=== PATIENT | female | born 1995 | race Caucasian/White ===

== ENCOUNTER 2020-12-10 15:23 | Inpatient (IN) ==
[2020-12-10] MEDS ORDERED: LACTATED RINGER'S 1,000 ML IV PRN ×2 (20:20→20:56)
[2020-12-10] MEDS ORDERED: miSOPROStoL 50 MCG TAB PO ONE (20:56)
[2020-12-10] MEDS ORDERED: OXYTOCIN 30 UNITS/500 ML BAG IV PRN (20:56)
[2020-12-10 20:57] LABS: Hematocrit (blood only) 33.5 % (37-47); Hemoglobin 11.4 g/dL (12.0-16.0); Mean Corpuscular Hemoglobin 31.5 pg (25-34); Mean Corpuscular Volume 92.5 fL (80-100); Mean Platelet Volume 10.7 fL (7.4-10.4); Platelet Count 275 K/uL (130-400); RDW Coefficient of Variation 13.3 % (11.5-14.5); RDW Standard Deviation 44.8 fL (36.4-46.3); Red Blood Count 3.62 M/uL (4.2-5.4); White Blood Count 7.86 K/uL (4.8-10.8)
[2020-12-11] MEDS ORDERED: miSOPROStoL 50 MCG TAB PO PRN (01:12)
[2020-12-11] MEDS ORDERED: miSOPROStoL 50 MCG TAB ONE (01:25)
[2020-12-11] MEDS ORDERED: BUTORPHANOL TARTRATE 1 MG/ML VIAL IV PRN (05:20)
[2020-12-11] MEDS ORDERED: BUTORPHANOL TARTRATE 1 MG/ML VIAL ONE (05:39)
[2020-12-11] MEDS ORDERED: BUPIVACAINE 0.25% 30 ML VIAL ONE (05:52)
[2020-12-11] MEDS ORDERED: fentaNYL citrate 100 MCG/2 ML VIAL ONE (05:52)
[2020-12-11] MEDS ORDERED: ePHEDrine sulfate 50 MG/ML AMP ONE (05:52)
[2020-12-11] MEDS ORDERED: fentaNYL 2MCG/ML ROPIVACAINE 1.25MG/ML 100 ML BAG EPI ONE (05:53)
[2020-12-11] MEDS ORDERED: LIDOCAINE 1% LOCAL 20 ML VIAL ONE ×2 (06:43→06:49)
[2020-12-11] MEDS: OXYTOCIN 30 UNITS/500 ML BAG IV PRN ×2 (06:45→07:57)
[2020-12-11] MEDS ORDERED: METHYLERGONOVINE MALEATE 0.2 MG/ML AMP ONE (06:57)
[2020-12-11] MEDS ORDERED: CARBOPROST TROMETHAMINE 250 MCG/ML AMPUL ONE (07:02)
[2020-12-11] MEDS ORDERED: miSOPROStoL 100 MCG TAB PR ONE (07:22)
[2020-12-11] MEDS ORDERED: BENZOCAINE 20% AER SPR 82.5 GM CAN EXT PRN (07:22)
[2020-12-11] MEDS ORDERED: OXYTOCIN 30 UNITS/500 ML BAG IV PRN (07:22)
[2020-12-11] MEDS ORDERED: METHYLERGONOVINE MALEATE 0.2 MG/ML AMP IM ONE (07:22)
[2020-12-11] MEDS ORDERED: oxyCODONE/ACETAMINOPHEN 5mg/325mg TAB PO PRN (07:22)
[2020-12-11] MEDS ORDERED: DIPHTHERIA/TETANUS/PERTUSSIS 0.5 ML SYR/VIAL IM ONE (07:22)
[2020-12-11] MEDS ORDERED: HYDROCORTISONE ACETATE 25 MG SUPP PR PRN (07:22)
[2020-12-11] MEDS ORDERED: CARBOPROST TROMETHAMINE 250 MCG/ML AMPUL IM ONE (07:22)
[2020-12-11] MEDS ORDERED: bisacodyL 10 MG SUPP PR PRN (07:22)
[2020-12-11] MEDS ORDERED: ACETAMINOPHEN W/CODEINE #3 1 TAB PO PRN (07:22)
[2020-12-11] MEDS ORDERED: SUPERCREAM 0.870% 15 GM JAR EXT PRN (07:22)
[2020-12-11] MEDS ORDERED: miSOPROStoL 100 MCG TAB ONE (07:25)
[2020-12-11] MEDS: IBUPROFEN 600 MG TAB PO PRN ×4 (08:26→23:53)
--- NOTE | 2020-12-11 08:26 | Operative Report (OR) ---
DATE OF OPERATION: 12/11/2020 DELIVERY NOTE She has been followed in our office for care and delivery. She started to develop gestational hypertension. Last several weeks, she was placed at bed rest. The pressures were followed frequently in the office. They continued to get worse and she was basically brought in for induction with diagnosis of early toxemia. Pressures were elevated on admission and she did have some trace protein. Her cervix was ripe. Her cervix was about 3-4 cm, thin, soft, has about a -1 station. She was not jeffery, so she was given p.o. Cytotec 50 mcg. Four hours later, she still was not jeffery, given another dose of 50 mcg. Subsequently, her membranes ruptured. I checked her, she was about 5 cm and then an hour later, she was fully dilated at about a +3 station. At this point, we started to push. In a short period of time under an hour, she pushed out a live male via direct occiput anterior position over an intact perineum. Infant was suctioned through the mouth and the nose. Cord was allowed to pulse for over a minute, then cord was clamped, it was cut by the father. Cord blood was taken. With IV Pitocin running and IM Methergine, the placenta was removed intact. We did have problems with some atony, so eventually we gave her Hemabate and 800 mcg of rectal Cytotec. She had a right sulcus laceration, which was identified and a running heavy Vicryl was used to approximate the vaginal edges out and to beyond the hymenal ring. Then another midline tear was used to approximate the vaginal mucosa out and to beyond the hymenal ring. Then a deep suture was used to approximate the bulbocavernosus muscle. A separate deep suture was used to approximate the perineal body and then another deep suture was used to bolster the rectal sphincter capsule. Following this, hemostasis was good. I did do a rectal exam to make sure there were no stitches through the rectum, there were not. I then repaired the perineal skin edges. I trimmed some of the skin off, then did a running subcuticular approximation. Following this, vag exam revealed no hematoma formation and during placing rectal Cytotec, there were no stitches in the rectum. Estimated blood loss is about 400 mL. Apgars deferred to the nurses. I attest to the content of the Intraoperative Record and any orders documented therein. Any exception s are noted below.
[2020-12-11] MEDS: ACETAMINOPHEN 325 MG TAB PO PRN (11:11)
[2020-12-11] MEDS: DOCUSATE SODIUM 100 MG CAP PO SCH (20:13)
[2020-12-12] MEDS: IBUPROFEN 600 MG TAB PO PRN ×3 (05:14→19:44)
[2020-12-12 07:44] LABS: Hematocrit (blood only) 24.9 % (37-47); Hemoglobin 8.3 g/dL (12.0-16.0); Mean Corpuscular Hemoglobin 31.1 pg (25-34); Mean Corpuscular Hgb Conc 33.3 g/dL (32-36); Mean Corpuscular Volume 93.3 fL (80-100); Platelet Count 252 K/uL (130-400); RDW Coefficient of Variation 13.9 % (11.5-14.5); RDW Standard Deviation 46.7 fL (36.4-46.3); Red Blood Count 2.67 M/uL (4.2-5.4); White Blood Count 12.94 K/uL (4.8-10.8)
[2020-12-12] MEDS: DOCUSATE SODIUM 100 MG CAP PO SCH ×3 (07:51→20:36)
[2020-12-12] MEDS: PRENATAL VITAMIN 1 TAB PO SCH (07:51)
[2020-12-12] MEDS: ACETAMINOPHEN 325 MG TAB PO PRN (09:40)
--- NOTE | 2020-12-12 10:15 | Obstetrical Progress Note ---
Date of Service December 12, 2020 Assessment & Plan Admission and Anticipated Discharge Date Admission Date: December 10, 2020 Physical Exam Physical Exam: abdomen soft and non tender no calf tenderness ambulating well vaginal bleeding scant hgb 8.3 Results & Data ([facility]) Vital Signs (Past 12 Hours) Vital Signs Temp Pulse Resp BP Pulse Ox 12/12/20 07:08 36.8 C 86 18 105/51 L 97 12/12/20 03:20 36.6 C 85 16 109/76 97 12/11/20 23:30 36.7 C 84 16 99/63 L 98
[2020-12-12] MEDS ORDERED: bisacodyL 5 MG TABEC PO SCH (20:00)
[2020-12-13] MEDS: IBUPROFEN 600 MG TAB PO PRN ×3 (00:13→07:59)
[2020-12-13 06:41] LABS: Hematocrit (blood only) 22.8 % (37-47); Hemoglobin 7.7 g/dL (12.0-16.0)
[2020-12-13] MEDS: DOCUSATE SODIUM 100 MG CAP PO SCH (07:59)
[2020-12-13] MEDS: PRENATAL VITAMIN 1 TAB PO SCH ×2 (07:59→09:48)
--- NOTE | 2020-12-13 09:10 | Obstetrical Progress Note ---
Date of Service December 13, 2020 Assessment & Plan Admission and Anticipated Discharge Date Admission Date: December 10, 2020 Physical Exam Physical Exam: abdomen soft and non tender no calf tenderness ambulating well no dizziness vaginal bleeding scant hgb 7.7 Results & Data ([facility]) Vital Signs (Past 12 Hours) Vital Signs Temp Pulse Resp BP Pulse Ox 12/12/20 23:50 36.7 C 90 18 115/83 99
== END 2020-12-13 14:15 | disposition home or self-care (01) | DRG 807 ==
LOC: 4S1 20:07 → 4S2 12-11 11:11